=== PATIENT | female | born 1980 | race Caucasian/White ===

== ENCOUNTER 2024-09-15 14:46 | Outpatient (REF) | payer MEDICARE, MEDICAID, SELFPAY ==
[2024-09-19 12:08] LABS: Age Gdln ACOG Testing Note (.); HPV Aptima Negative (Negative); IGP, Aptima HPV, rfx 16/18,45 Note (.)
== END 2024-09-15 14:47 | disposition home or self-care (01) ==
LOC: LAB 14:46
PROVIDERS: PCP Family Medicine; Visit Provider Obstetrics & Gynecology
DX: Z01.419 Encounter for gynecological examination (general) (routine) without abnormal findings (principal)
CPT/HCPCS: 88175